=== PATIENT | male | born 1965 | race Caucasian/White ===

== ENCOUNTER → 2023-10-14 | Outpatient (CLI) | payer BC ==
[~2023-10-14] VITALS: Ht 175.3 cm; Wt 108.9 kg
[~2023-10-14] MED LIST: BYSTOLIC5 MG PO; CIPRO 500MG TA500 MG PO; DIOVAN/HCT 12.51 TAB PO; HCTZ 25MG TAB25 MG PO; LEXAPRO 10MG10 MG PO; NORCO 325 MG-7.1 TAB PO; OXYCONTIN10 MG PO; PERCOCET 325 MG1 TA2 PO; PHENERGAN 25 TA25 MG PO; Regadenoson 0.08 MG/ML 5 ML SYRINGE IV SCH; TRAMADOL; TRICOR145 MG PO; ULTRAM 50MG TAB50 MG PO; ZOFRAN 4MG T4 MG/TAB PO; ZOFRAN ODT4 MG PO; [UNRECOGNIZED DRUG - REMARK]
[2023-10-14 09:10] VITALS: BP 161/84; PULSE 70; TEMP 97.8
[2023-10-14 10:04] VITALS: BP 134/70; PULSE 64
[2023-10-14 10:32] VITALS: BP 166/83; PULSE 103
[2023-10-14 10:33] VITALS: BP 154/77; PULSE 101
[2023-10-14 10:34] VITALS: BP 144/82; PULSE 93
== END ==
LOC: COL.RAD 08:58
DX: R07.9 Chest pain, unspecified (principal)
CPT/HCPCS: A9500-JZ; J2785